=== PATIENT | male | born 1965 | race Caucasian/White ===

== ENCOUNTER → 2016-12-28 | Outpatient (CLI) | payer BC ==
--- NOTE | 2016-12-28 12:49 | DIAGNOSTIC IMAGING REPORT ---
ULTRASOUND TESTES AND SCROTUM CLINICAL HISTORY: Orchitis. COMPARISON STUDY: No priors. TECHNIQUE: Real-time, grayscale, and color Doppler sonography of the testes and scrotum is performed. Images are reviewed in the transverse and longitudinal planes. FINDINGS: The testes are normal in size and homogeneous in echotexture. The right testis measures 4.3 x 2.2 x 2.9 cm and the left testis measures 5.1 x 2.3 x 3.3 cm. No intratesticular mass is seen. Testicular blood flow is normal and symmetric. Normal Doppler waveforms are identified in both testes. The epididymal heads are normal in appearance. The right epididymal head measures 0.8 cm in length and the left epididymal head measures 1.1 cm in length. A tiny hydrocele is suggested on the left. There is no right-sided hydrocele identified and no varicocele is seen. IMPRESSION: 1. Unremarkable sonographic assessment of the testes. 2. A tiny left-sided hydrocele is noted. Electronically signed by: Bhavesh Banerjee M.D. 12/28/2016 12:47 PM Dictated Date/Time: 12/28/2016 12:45 PM
== END | disposition home or self-care (01) ==
LOC: C.ULTRBC 12:17
PROVIDERS: ATTEND Nurse Practitioner Adult Health
DX: N45.2 Orchitis (principal)